=== PATIENT | male | born 1960 | race Caucasian/White ===

== ENCOUNTER → 2016-10-18 | Outpatient (CLI) | payer OTHER ==
--- NOTE | 2016-10-19 16:34 | REP ---
Whole body PET CT scan: There are no comparison PET scans. Comparison is made to CT of the chest abdomen pelvis dated 01/29/2015 ([facility]). Neck and supraclavicular areas: There is an hypermetabolic focus in the scalp postero lateral inferiorly on the right measuring approximately 1.4 cm in diameter with a standard uptake value of 7.6. There are no other hypermetabolic foci in the neck or supraclavicular areas. Chest: There are no hypermetabolic foci. Abdomen, pelvis and upper thighs: There is nonspecific bowel uptake. There is physiologic radio tracer excretion in the renal collecting systems. There are no hypermetabolic foci. Impression: There are no hypermetabolic foci. The study is performed with 10 mCi of F 18 FDG. Signed by Markus Sampson MD 10/19/2016 04:26 P
== END ==
LOC: M PLARAD 15:24
PROVIDERS: ATTEND Internal Medicine Medical Oncology
DX: C82.90 Follicular lymphoma, unspecified, unspecified site (principal)
CPT/HCPCS: 78815; A9552

== ENCOUNTER → 2016-10-20 | Outpatient (CLI) | payer OTHER ==
--- NOTE | 2016-10-20 14:50 | RADONC ---
RADIATION ONCOLOGY CONSULTATION NOTE DATE: 10/20/2016 CHART NUMBER: DIAGNOSIS: Follicular non-Hodgkin's lymphoma. STAGE: Recurrent. ECOG PERFORMANCE STATUS: 0 Mr. Mcclendon is a pleasant, 56-year-old white male with the diagnosis of recurrent cutaneous B-cell lymphoma, follicular center cell type, of his posterior occipital scalp, who is presenting to us today for consideration of definitive external beam radiation therapy with electrons as a therapeutic option. HISTORY OF PRESENT ILLNESS: The patient was in his usual state of health and was first diagnosed with follicular lymphoma back in 2003. He had a lymph node dissected at that time and has had no systemic therapy or radiation therapy. The patient did well until approximately a year ago, when there was a small bump on his occipital region of his scalp. His dentist recommended that this be checked out, and on 09/14/2016, the patient underwent excisional biopsy of his right posterior occipital lesion. Pathology revealed a cutaneous B-cell lymphoma favoring a follicular center cell type. The patient has no fevers, chills, night sweats, or weight loss. He is now presenting for consideration of electron beam therapy in an attempt to achieve local control. PAST MEDICAL HISTORY: The patient's past medical history is positive for hypertension, diabetes, and arthritis. He has had left knee surgery in the past. ALLERGIES: The patient has no known drug allergies. SOCIAL HISTORY: The patient does not smoke cigarettes. He drinks alcohol daily. FAMILY HISTORY: The patient's family history is positive for a grandfather with lung cancer and a grandmother with some type of cancer of unknown origin. REVIEW OF SYSTEMS: The patient's review of systems is positive for decreased energy, weight gain, physical limitations secondary to his weight, and arthritis. He denies nausea, vomiting, fevers, chills, night sweats, diplopia, headaches, anxiety or depression, anorexia, weight loss, visual disturbances, chest pain, urinary or bowel difficulties, or neurological problems. PHYSICAL EXAMINATION: The patient is a 307-1/2 pound white male in no acute distress. HEENT: Exam is positive for a circular, elevated lesion measuring approximately to 2.5 cm in circumference over the occipital portion of his scalp. There are no other lesions present. There is no palpable preauricular, cervical, supraclavicular, infraclavicular, or axillary lymphadenopathy present. His lungs are clear to auscultation and percussion. His heart has regular rate and rhythm. His abdomen is benign, but difficult to examine secondary to obesity. Skeletal examination reveals no tenderness to pressure or percussion of the bony skeleton. ASSESSMENT: Clearly, the patient is a candidate for electron beam therapy, and I have so informed him. I have discussed with the patient in detail the potential benefits well as possible acute and chronic sequelae of external beam radiation therapy. We discussed logistics of treatment planning, simulation, and subsequent fractionated daily radiation treatments. I have scheduled the patient for the next available treatment planning slot, and radiation will begin subsequently. cc: MD Dorothy Mejia MD Howard Meny, MD
== END ==
LOC: M ONCR 10:11
PROVIDERS: ATTEND Radiology Radiation Oncology
DX: C82.90 Follicular lymphoma, unspecified, unspecified site (principal)

== ENCOUNTER 2016-10-25 09:36 | Outpatient (RCR) | payer OTHER ==
--- NOTE | 2016-10-25 10:49 | RADONC ---
RADIATION ONCOLOGY SIMULATION NOTE DATE: 10/25/2016 CHART NUMBER: [id number] Mr. Mcclendon was taken to the linear accelerator today for clinical setup of his electron beam scalp field. Setup was accomplished without difficulty or discomfort. Radiation treatment planning is underway and radiation treatments will begin subsequently. An immobilization device was created without difficulty or discomfort. It will be used throughout the course of treatment. I was physically present throughout the course of simulation.
--- NOTE | 2016-11-08 06:20 | RADONC ---
RADIATION ONCOLOGY PROGRESS NOTE DATE: 11/07/2016 CHART NUMBER: [id number] Mr. Mcclendon is presently at a dose of 1200 cGy to his scalp and is tolerating treatments quite well at this point with no complaints related to his radiation therapy. He is having no skin discomfort or other problems. The patient does report that his lesion has shrunk in size significantly since initiation of therapy. REVIEW OF SYSTEMS: The patient's review of systems is noncontributory. Denies nausea, vomiting, fevers, chills, night sweats, diplopia, headaches, anxiety or depression, anorexia, weight loss, visual disturbances, chest pain, urinary or bowel difficulties, bone pain, or neurological problems. PHYSICAL EXAMINATION: The patient's skin is in excellent condition with no evidence of radiation change present. There is no moist or dry desquamation. The skin lesion has reduced in size significantly. The remainder of his physical exam remains unchanged. Mr. Mcclendon is tolerating treatments quite well and radiation will continue as scheduled.
== END 2016-11-10 ==
LOC: M ONCR 09:36
PROVIDERS: ATTEND Radiology Radiation Oncology
DX: C49.9 Malignant neoplasm of connective and soft tissue, unspecified (principal)

== ENCOUNTER 2016-11-11 11:43 | Outpatient (RCR) | payer OTHER ==
--- NOTE | 2016-11-16 08:50 | RADONC ---
RADIATION ONCOLOGY PROGRESS NOTE DATE: 11/15/2016 CHART NUMBER: [id number] Mr. Mcclendon is presently at a dose of 2200 cGy to his scalp and is tolerating treatments quite well at this point with no complaints related to his radiation therapy. He is having no skin pain or discomfort. The patient's review of systems is noncontributory. He denies nausea, vomiting, fevers, chills, night sweats, diplopia, headaches, anxiety or depression, anorexia, weight loss, visual disturbances, chest pain, urinary or bowel difficulties, bone pain, or neurological problems. PHYSICAL EXAMINATION: The patient's skin is in excellent condition with no evidence of moist or dry desquamation. His non-Hodgkin's lymphoma skin lesion is now flat, with an excellent result. The remainder of his physical exam remains unchanged. Mr. Mcclendon is tolerating treatments quite well and radiation will continue as scheduled.
--- NOTE | 2016-11-21 09:46 | RADONC ---
RADIATION ONCOLOGY TREATMENT SUMMARY DATE: 11/21/2016 CHART NUMBER: [id number] DIAGNOSIS: Follicular non-Hodgkin's lymphoma. STAGE: Recurrent. ECOG PERFORMANCE STATUS: 0 TREATMENT SUMMARY: Mr. Mcclendon is a very pleasant 56-year-old white male with the diagnosis of recurrent cutaneous B-cell lymphoma, follicular center cell type who presented to us for consideration of definitive radiation therapy to his scalp lesion. We treated the patient to his scalp for a dose of 3000 cGy delivered in 15 fractions of 200 cGy each over 21 elapsed days from 09/30/2016 through 11/21/2016. The patient's scalp was treated on the linear accelerator utilizing a 9 MeV electron beam via an en face technique prescribed to a depth of the 90th percentile isodose line. Mr. Mcclendon tolerated his treatments extremely well with no complaints related to his radiation therapy. He was able to complete therapy as prescribed without interruption. I have scheduled the patient to see me again in 1 month for further followup. He will also continue to be followed by his other physicians as well. cc: MD oDrothy Mejia MD Howard Meny, MD
== END 2016-12-10 ==
LOC: M ONCR 11:43
PROVIDERS: ATTEND Radiology Radiation Oncology
DX: C49.9 Malignant neoplasm of connective and soft tissue, unspecified (principal)

== ENCOUNTER → 2017-04-04 | Outpatient (REF) | payer OTHER ==
[2017-04-04 13:54] LABS: INR 1.57; PROTHROMBIN TIME 19.2 SECONDS (12.4-14.5)
[2017-04-04 13:55] LABS: PARTIAL THROMBOPLASTIN TIME 37.1 SECONDS (26.8-37.9)
== END ==
LOC: M LAB REF 13:01
DX: C82.90 Follicular lymphoma, unspecified, unspecified site (principal)

== ENCOUNTER → 2017-04-12 | Outpatient (CLI) | payer OTHER ==
[~2017-04-12] MED LIST: LIDOCAINE 1% MDV 20ML VIAL As Ordered
== END ==
LOC: M RADPRO 12:54
DX: C85.10 Unspecified B-cell lymphoma, unspecified site (principal); R59.9 Enlarged lymph nodes, unspecified; Z79.899 Other long term (current) drug therapy
CPT/HCPCS: 10022

== ENCOUNTER → 2017-04-26 | Outpatient (CLI) | payer OTHER | LOC: M PLARAD 10:27 | DX: C82.90 Follicular lymphoma, unspecified, unspecified site (principal) | CPT/HCPCS: 78815 ==

== ENCOUNTER → 2017-05-03 | Outpatient (CLI) | payer OTHER | LOC: M EKG 15:31 | DX: Z01.818 Encounter for other preprocedural examination (principal); I10 Essential (primary) hypertension; R94.31 Abnormal electrocardiogram [ECG] [EKG] | CPT/HCPCS: 93005 ==

== ENCOUNTER 2017-05-04 09:25 | Day surgery (SDC) | payer OTHER ==
[2017-05-04] MEDS: LR 1,000 ML IV ×2 (10:53→14:15)
[2017-05-04 10:58] LABS: BEDSIDE GLUCOSE 135 MG/DL (70-105)
[2017-05-04] MEDS ORDERED: PROPOFOL 200 MG/20 ML VIAL As Ordered (11:16)
[2017-05-04] MEDS ORDERED: LIDOCAINE 2% INJ 100 MG/5 ML SDV (FOR ANES.) As Ordered (11:16)
[2017-05-04] MEDS ORDERED: ONDANSETRON 4MG/2ML VIAL (J2405) As Ordered (11:16)
[2017-05-04] MEDS ORDERED: dexameTHASONE 4 MG/ML 1ML VIAL (J1100) As Ordered (11:16)
[2017-05-04] MEDS ORDERED: fentaNYL 250 MCG/5 ML INJECTION (J3010) As Ordered (11:17)
[2017-05-04] MEDS ORDERED: MIDAZOLAM INJ 2 MG/2 ML VIAL (J2250) As Ordered (11:18)
[2017-05-04] MEDS: BACITRACIN OINT 30GM As Ordered (12:30)
[2017-05-04] MEDS: LIDOCAINE W/EPINEPHRINE 1% 20ML VIAL As Ordered (12:53)
[2017-05-04] MEDS ORDERED: ROCURONIUM BROMIDE 50 MG/5 ML VIAL As Ordered (12:56)
[2017-05-04] MEDS ORDERED: SUGAMMADEX SODIUM 500 MG/5 ML VIAL (BRIDION) As Ordered (12:56)
[2017-05-04] MEDS ORDERED: SUCCINYLCHOLINE 100 MG/5 ML SYRINGE (J0330) As Ordered (12:57)
[2017-05-04] MEDS ORDERED: PHENYLephrine HCL 500 MCG/5 ML (100MCG/ML) SYRINGE (J2370) As Ordered (12:57)
[2017-05-04] MEDS ORDERED: ePHEDrine INJ 50 MG/ML VIAL As Ordered (13:15)
[2017-05-04] MEDS ORDERED: NEOSTIGMINE 10 MG/10 ML VIAL (J2710) As Ordered (13:27)
[2017-05-04] MEDS ORDERED: GLYCOPYRROLATE INJ 0.2 MG/ML 2 ML VIAL As Ordered (13:27)
[2017-05-04] MEDS ORDERED: KETOROLAC 60 MG/2 ML VIAL (J1885) As Ordered (13:42)
[2017-05-04] MEDS ORDERED: LR 1,000 ML IV (14:00)
[2017-05-04] MEDS ORDERED: PERCOCET 5MG/325MG TAB As Ordered (14:09)
[2017-05-04] MEDS: PERCOCET 5MG/325MG TAB PO (14:09)
[2017-05-04] MEDS ORDERED: ONDANSETRON 4MG/2ML VIAL (J2405) IV (14:15)
== END 2017-05-04 15:45 | disposition home or self-care (01) ==
LOC: M SDC 09:25
DX: R59.0 Localized enlarged lymph nodes (principal); E11.9 Type 2 diabetes mellitus without complications; I10 Essential (primary) hypertension; E78.00 Pure hypercholesterolemia, unspecified; R06.02 Shortness of breath; M17.0 Bilateral primary osteoarthritis of knee; M54.9 Dorsalgia, unspecified; Z79.899 Other long term (current) drug therapy; Z79.84 Long term (current) use of oral hypoglycemic drugs; Z85.038 Personal history of other malignant neoplasm of large intestine; Z92.3 Personal history of irradiation
CPT/HCPCS: 38510

== ENCOUNTER 2017-05-17 15:19 | Outpatient (CLI) | payer OTHER ==
[2017-05-17] MEDS: ACETAMINOPHEN TAB 650MG DOSE (2X325MG) PO (16:10)
[2017-05-17] MEDS: diphenhydrAMINE 50 MG CAP PO (16:10)
[2017-05-17 16:51] LABS: IMMEDIATE SPIN CROSSMATCH 1 2
[2017-05-19 12:15] LABS: BEDSIDE GLUCOSE 117 MG/DL (70-105)
== END 2017-05-17 23:33 | disposition home or self-care (01) ==
LOC: M OPCLI5PR 23:33 → M MS5PR 15:22
DX: C82.90 Follicular lymphoma, unspecified, unspecified site (principal); Z79.899 Other long term (current) drug therapy
CPT/HCPCS: 36430

== ENCOUNTER → 2017-05-17 | Outpatient (REF) | payer OTHER ==
[2017-05-17 19:03] LABS: FERRITIN 17 NG/ML (26-388); IRON (FE) 21 UG/DL (65-175); PERCENT SATURATION 5.1 % (19.7-50.0); TOTAL IRON BINDING CAPACITY 408 UG/DL (250-450)
[2017-05-17 19:03] LABS: BILIRUBIN,DIRECT 0.9 MG/DL (0.0-0.2)
[2017-05-20 00:06] LABS: BETA 2 MICROGLOBULIN 2.3 mg/L (0.6-2.4)
[2017-05-20 00:06] LABS: SOLUBLE TRANSFERRIN RECEPTOR 57.1 nmol/L (12.2-27.3)
== END ==
LOC: M LAB REF 17:28
DX: C82.90 Follicular lymphoma, unspecified, unspecified site (principal)
CPT/HCPCS: 83550

== ENCOUNTER → 2017-06-28 | Outpatient (REF) | payer OTHER ==
[2017-06-28 13:57] LABS: FERRITIN 237 NG/ML (26-388); IRON (FE) 66 UG/DL (65-175); PERCENT SATURATION 26.1 % (19.7-50.0); TOTAL IRON BINDING CAPACITY 253 UG/DL (250-450)
== END ==
LOC: M LAB REF 13:06
DX: D50.9 Iron deficiency anemia, unspecified (principal)

== ENCOUNTER 2017-06-30 10:03 | Day surgery (SDC) | payer OTHER ==
[2017-06-30] MEDS: NS 1,000 ML IV ×2 (10:15)
[2017-06-30] MEDS ORDERED: PROPOFOL 200 MG/20 ML VIAL As Ordered ×10 (11:13→11:48)
== END 2017-06-30 12:28 | disposition home or self-care (01) ==
LOC: M OPP 10:03
DX: D50.9 Iron deficiency anemia, unspecified (principal); Z85.038 Personal history of other malignant neoplasm of large intestine; D12.7 Benign neoplasm of rectosigmoid junction; K64.8 Other hemorrhoids; I86.4 Gastric varices; K74.60 Unspecified cirrhosis of liver; K76.6 Portal hypertension; K31.89 Other diseases of stomach and duodenum; C82.90 Follicular lymphoma, unspecified, unspecified site; Z92.3 Personal history of irradiation; I10 Essential (primary) hypertension; E78.5 Hyperlipidemia, unspecified; E11.9 Type 2 diabetes mellitus without complications; M19.90 Unspecified osteoarthritis, unspecified site; D64.9 Anemia, unspecified; M54.9 Dorsalgia, unspecified; R06.83 Snoring; Z79.84 Long term (current) use of oral hypoglycemic drugs; Z79.899 Other long term (current) drug therapy
CPT/HCPCS: 45380

== ENCOUNTER → 2017-06-30 | Outpatient (CLI) | payer OTHER ==
[2017-06-30 10:19] LABS: BASO # 0.1 10^3/uL (0.0-0.2); BASO % 1.4 % (0.0-1.0); EOS # 0.1 10^3/uL (0.0-0.50); EOS % 0.9 % (0.0-3.0); HEMATOCRIT 36.3 % (42.0-52.0); HEMOGLOBIN 11.9 g/dl (13.5-17.5); IMMATURE GRANULOCYTE % 0.2 % (0-3.0); LYMPH # 0.8 10^3/uL (1.5-4.5); LYMPH % 11.7 % (24.0-44.0); MEAN CORPUSCULAR HEMOGLOBIN 28.7 pg (27.0-33.0); MEAN CORPUSCULAR HGB CONC 32.8 g/dl (32.0-36.5); MEAN CORPUSCULAR VOLUME 87.5 fl (80.0-96.0); MONO # 0.8 10^3/uL (0.0-0.8); MONO % 11.4 % (0.0-5.0); NEUTROPHILS % 74.4 % (36.0-66.0); PLATELET COUNT, AUTOMATED 131 10^3/uL (150-450); RED BLOOD COUNT 4.15 10^6/uL (4.30-6.10); RETIC HEMOGLOBIN EQUIVALENT 38.4 pg (24-36); RETICULOCYTE # 66.4 10^9/L (17-77); RETICULOCYTE % 1.6 % (0.5-1.5); WHITE BLOOD COUNT 6.7 10^3/uL (4.0-10.0)
[2017-06-30 10:20] LABS: ADD MORPHOLOGY? YES; POSITIVE MORPH POS FLAG
[2017-06-30 10:24] LABS: REASON FOR REVIEW ANEMIA / RBC MORPH; SLIDE REVIEW Report; SOURCE PERIPHERAL SMEAR
[2017-06-30 10:36] LABS: ANISOCYTOSIS 2+
[2017-06-30 10:37] LABS: POIKILOCYTOSIS 1+; TARGET CELLS 1+
[2017-06-30 10:38] LABS: HYPOCHROMASIA 1+; PLATELET ESTIMATE NORMAL (NORMAL)
[2017-06-30 10:43] LABS: ALBUMIN 3.2 GM/DL (3.2-5.2); ALBUMIN/GLOBULIN RATIO 0.78 (1.00-1.93); ALKALINE PHOSPHATASE 140 U/L (45-117); ALT/SGPT 32 U/L (12-78); AST/SGOT 95 U/L (7-37); BILIRUBIN,DIRECT 2.6 MG/DL (0.0-0.2); BILIRUBIN,TOTAL 4.4 MG/DL (0.2-1.0); LDH LACTATE DEHYDROGENASE 249 U/L (87-241); TOTAL PROTEIN 7.3 GM/DL (6.4-8.2)
[2017-06-30 10:50] LABS: FOLATE 15.2 NG/ML (>5.4); VITAMIN B12 LEVEL 1481 PG/ML (247-911)
[2017-07-02 00:06] LABS: TISSUE TRANSGLUTAMINASE IgA 3 U/mL (0-3)
[2017-07-02 00:06] LABS: HAPTOGLOBIN 104 mg/dL (34-200)
[2017-07-04 08:06] LABS: IgA SERUM (part of Subclasses) 1071 mg/dL (90-386)
== END ==
LOC: M LAB 09:24
DX: D50.9 Iron deficiency anemia, unspecified (principal)
CPT/HCPCS: 82746

== ENCOUNTER → 2017-08-04 | Outpatient (CLI) | payer OTHER | LOC: M RAD 09:20 | DX: D50.9 Iron deficiency anemia, unspecified (principal) | CPT/HCPCS: 76700 ==

== ENCOUNTER → 2017-10-05 | Outpatient (REF) | payer MEDICAID, OTHER ==
[2017-10-05 11:12] LABS: AMMONIA 50 uMOL/L (<32)
[2017-10-05 12:17] LABS: ESTIMATED AVERAGE GLUCOSE 100 MG/DL (60-110); HEMOGLOBIN A1c 5.1 %
== END ==
LOC: M LAB REF 10:42
DX: F10.929 Alcohol use, unspecified with intoxication, unspecified (principal)
CPT/HCPCS: 82140

== ENCOUNTER → 2017-10-31 | Outpatient (CLI) | payer OTHER | LOC: M PLARAD 12:24 | DX: C82.11 Follicular lymphoma grade II, lymph nodes of head, face, and neck (principal) | CPT/HCPCS: 78815 ==

== ENCOUNTER → 2018-02-07 | Outpatient (REF) | payer OTHER ==
[2018-02-07 11:08] LABS: INR 1.47; PROTHROMBIN TIME 18.1 SECONDS (12.1-14.4)
[2018-02-07 11:09] LABS: PARTIAL THROMBOPLASTIN TIME 36.3 SECONDS (25.4-37.6)
[2018-02-07 11:21] LABS: BILIRUBIN,DIRECT 0.9 MG/DL (0.0-0.2)
[2018-02-07 11:33] LABS: HEPATITIS B SURFACE ANTIBODY NEGATIVE (POSITIVE)
[2018-02-07 12:13] LABS: HEPATITIS C VIRUS ABY INDEX 0.1 INDEX (<0.8)
[2018-02-07 14:01] LABS: HEPATITIS B SURFACE ANTIGEN NEGATIVE (NEGATIVE)
[2018-02-09 00:06] LABS: ANTI-MITOCHONDRIAL ANTIBODY 1.9 Units (0.0-20.0); ANTINUCLEAR ANTIBODIES DIRECT Negative (Negative); HEPATITIS A IgG TOTAL Negative (Negative); HEPATITIS B CORE ANTIBODY IGG Negative (Negative)
[2018-02-09 00:06] LABS: ANTI-SMOOTH MUSCLE ANTIBODY 27 Units (0-19)
[2018-02-09 09:59] LABS: ALPHA FETOPROTEIN TUMOR QUANT 5.7 NG/ML (<8.1)
== END ==
LOC: M LAB REF 10:14
DX: D50.9 Iron deficiency anemia, unspecified (principal); K70.30 Alcoholic cirrhosis of liver without ascites

== ENCOUNTER → 2018-05-15 | Outpatient (REF) | payer OTHER ==
[~2018-05-15] MED LIST changes: +FOLI1TAB11 PO; +GEMF600T5 PO; +HYDR-3363 PO; +HYDR12.55 PO; +IRON65TA PO; -LIDOCAINE 1% MDV 20ML VIAL As Ordered; +LISI10TA4 PO; +MELO7.5T7 PO; +METF10004; +MULTTAB23 PO; +PANT40TA3 PO; +SPIR-10 PO; +[UNRECOGNIZED DRUG - OTHER] PO
[2018-05-15 12:53] LABS: BASO % 0.6 % (0.0-1.0); EOS # 0.1 10^3/uL (0.0-0.50); HEMATOCRIT 30.6 % (42.0-52.0); HEMOGLOBIN 10.4 g/dl (13.5-17.5); LYMPH # 0.6 10^3/uL (1.5-4.5); LYMPH % 12.6 % (24.0-44.0); MEAN CORPUSCULAR HEMOGLOBIN 31.5 pg (27.0-33.0); MEAN CORPUSCULAR VOLUME 92.7 fl (80.0-96.0); MONO # 0.6 10^3/uL (0.0-0.8); MONO % 11.7 % (0.0-5.0); NEUTROPHILS # 3.4 10^3/uL (1.8-7.7); NEUTROPHILS % 71.7 % (36.0-66.0); PLATELET COUNT, AUTOMATED 95 10^3/uL (150-450); WHITE BLOOD COUNT 4.7 10^3/uL (4.0-10.0)
[2018-05-15 13:01] LABS: ALBUMIN 3.3 GM/DL (3.2-5.2); ALT/SGPT 22 U/L (12-78); BILIRUBIN,TOTAL 2.7 MG/DL (0.2-1.0); BLOOD UREA NITROGEN 22 MG/DL (7-18); CALCIUM LEVEL 8.1 MG/DL (8.5-10.1); CARBON DIOXIDE LEVEL 26 MEQ/L (21-32); CHLORIDE LEVEL 106 MEQ/L (98-107); CHOLESTEROL LEVEL 197 MG/DL (<200); CHOLESTEROL RISK RATIO 2.493 (<5); GLOMERULAR FILTRATION RATE > 60.0 (>56); GLUCOSE, FASTING 161 MG/DL (70-100); HDL CHOLESTEROL 79 MG/DL (>40); LDL CHOLESTEROL 106 MG/DL (<100); NON-HDL-C 118 MG/DL; SODIUM LEVEL 139 MEQ/L (136-145); TRIGLYCERIDES LEVEL 61 MG/DL (<150)
[2018-05-15 14:23] LABS: HEMOGLOBIN A1c 6.4 %
== END ==
LOC: M SFHCPLAZ 09:32
DX: E78.5 Hyperlipidemia, unspecified (principal); E11.9 Type 2 diabetes mellitus without complications; K70.31 Alcoholic cirrhosis of liver with ascites; D63.8 Anemia in other chronic diseases classified elsewhere

== ENCOUNTER → 2018-05-25 | Outpatient (CLI) | payer OTHER ==
--- NOTE | 2018-05-27 08:02 | ECHO ---
DATE OF PROCEDURE: 05/25/2018 HEIGHT: 70 inches WEIGHT: 270 pounds BODY SURFACE AREA: 2.37 sq m REFERRING PHYSICIAN: Dr. Gabriela Joshi INDICATION: Murmur. MEASUREMENTS: 2D Measurements: RV - 4.4 cm LV - 6.0 cm Septum -1.2 cm Posterior wall - 1.2 cm Aortic root - 3.8 cm LA - 4.5 cm LVEF 65 - 75% Doppler Measurements: AV - 1.7 meters per second LVOT - 1.5 meters per second LVOT diameter - 2.2 cm MV- E 78, A -67, E/A ratio 1.2 Early mitral deceleration time - 320 milliseconds E prime 8.4, A prime 8.8, E/E prime ratio 9.3 PV - 1.1 meters per second Pulmonary artery acceleration time 116 milliseconds PASP 33 mmHg IVC - 1.6 cm COMMENTS: Normal sinus rhythm without intraventricular conduction disturbance. Technically difficult study in light of the patient's body habitus but diagnostically useful information was still obtained. M-mode and two-dimensional echocardiography was obtained with pulsed, continuous wave, color flow and tissue Doppler studies. Mildly dilated and borderline hypertrophied left ventricle with hyperkinetic wall motion. At least mildly dilated left atrium with normal Doppler assessment of LV diastolic function and estimated mean left atrial pressure. Mildly dilated right heart chambers with normal wall motion and Doppler sign of borderline pulmonary hypertension. Normal IVC size against an elevated central venous pressure. Slight degenerative changes of the mitral and aortic valvular apparatus without functional valvular abnormality. Borderline dilated aortic root. No apparent intracardiac mass. His murmur is likely related to degenerative change of his aortic valve and mildly dilated aortic root. MTDD
== END ==
LOC: M CARPUL 09:02
PROVIDERS: ATTEND Internal Medicine
DX: R01.1 Cardiac murmur, unspecified (principal)

== ENCOUNTER → 2018-07-09 | Outpatient (CLI) | payer OTHER ==
[~2018-07-09] MED LIST changes: +FOLI0.4T PO; -[UNRECOGNIZED DRUG - OTHER] PO
--- NOTE | 2018-07-09 07:02 | REP ---
Clinical: History of cirrhosis with ascites. Technique: Veras scale ultrasound using curved array transducer. Findings: The liver demonstrates coarsened echotexture with subtle nodular contour consistent with the given history of cirrhosis. No focal hepatic lesion identified by ultrasound. The pancreas is incompletely evaluated due to interposed bowel gas but visualized portions appear grossly normal. The gallbladder is hydropic/distended, but without gallstones, wall thickening or pericholecystic fluid. No biliary ductal dilatation is appreciated, and the common bile duct measures 5.6 mm diameter. The right kidney is normal in reniform shape without hydronephrosis and measures 12.3 x 5.6 x 6.6 cm. No ascites. Visualized portions of the abdominal aorta normal. No ascites appreciated. Impression: 1. Cirrhotic appearance to the liver without focal hepatic lesion identified. 2. No ascites identified. Electronically Signed by Sha Martinez MD 07/09/2018 06:54 A
== END ==
LOC: M RAD 06:18
PROVIDERS: ATTEND Internal Medicine Gastroenterology
DX: K70.31 Alcoholic cirrhosis of liver with ascites (principal)

== ENCOUNTER → 2018-10-31 | Outpatient (REF) | payer OTHER ==
[~2018-10-31] MED LIST changes: +METO1TAB32 PO
--- NOTE | 2018-11-04 10:51 | MEDONC ---
MEDICAL ONCOLOGY NOTE DATE OF SERVICE: 11/02/2018 This is a very pleasant 57-year-old gentleman with a known history of follicular non-Hodgkin's lymphoma. currently on observation alone . Treatment history: 1.The patient had originally been diagnosed with a follicular non-Hodgkin's in 2003 with a retroperitoneal lymph node biopsy. He had been observed without any treatment until 2016 where he had developed progressive scalp lesions and biopsies at that time had shown a double hit by FISH. He had received radiation therapy to the scalp in 2017. 2.He then presented with a palpable right posterior cervical lymph node in 05/04/2017 and a biopsy of the cervical LN was done . PET scan had demonstrated a hypermetabolic area in the corresponding area. There was no other sign of the lymphoma elsewhere. 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 3.The patient then underwent bendamustine therapy in 07/13/2017-08/25/2017 and he completed 3 cycles .This was interrupted as he was readmitted to an alcohol rehab facility and he had developed hepatic encephalopathy and cirrhosis at that time. Currently he is on recovery from alcohol abuse. He has been on observation since. FAMILY HISTORY: His father had COPD, anxiety. Mother had partial lung removed, diagnosed with hypertension one brother. SOCIAL HISTORY: He is a nonsmoker but history of alcohol abuse, currently on recovery. ALLERGIES: He has NO KNOWN DRUG ALLERGIES. SURGICAL HISTORY: Positive for laparoscopic surgery in 2003. PAST MEDICAL HISTORY: Diabetes. Hypertension. Hyperlipidemia. Three surgeries to his knees. MEDICATIONS INCLUDE: - folic acid 1 mg p.o. daily - metoprolol succinate 25 mg p.o. daily - MVI one tablet p.o. daily REVIEW OF SYSTEMS: 1. CONSTITUTIONAL: No weight loss, fever chills or night sweats. Tiredness, fatigue, occasional weakness. 2. EYES: No blurring of vision, no visual loss partial or complete, no tearing, redness. 3. EAR, NOSE, THROAT and MOUTH: No hearing loss, sinusitis, sore throat, dental problems, tooth pain. Denies dysphagia, mouth sores, bleeding. 4. RESPIRATORY: Denies asthma, wheezing, cough, sputum production. 5. GI: No nausea, vomiting, diarrhea or constipation, change in color or caliber of stool. No hemorrhoids. No rectal bleeding. No hematemesis, heartburn. 6. : No hematuria, dysuria, frequency, stones. 7. CV: No chest pain, palpitations, murmur, fainting, lightheadedness or chest pressure. 8. ENDOCRINE: No cold or heat intolerance, diabetes, polyuria, polydipsia. 9. MUSCULOSKELETAL: No new joint stiffness, joint swelling, myalgias, gout. 10. ALLERGY/IMMUNOLOGY: No new allergies to food, medications. 11. HEMATOLOGICAL: Denies bruising, bleeding, lymph node enlargement. 12. PSYCHIATRIC: Denies depression, agitation, memory loss, panic attacks. 13. SKIN: Denies rashes, moles, dryness, pigment changes. 14. NEUROLOGIC: Denies dizziness, syncope, seizures, vertigo, weakness, tremor. PHYSICAL EXAMINATION: ECOG is 1/4, his BSA is 2.56, BMI is 40. Vital signs: The patient has a temperature of 97.8, pulse is 64, respiratory rate is 18, BP is 150/74, pulse oximetry is 98. HEENT is normocephalic, atraumatic. PERRL. EOMI. Sclerae is white, nonicteric. Oropharynx is otherwise clear. Neck is supple with no adenopathy. Chest: Decreased breath sounds at the bases. Cardiovascular: S1 and S2 are appreciated with no murmurs. Abdomen is otherwise soft, nontender. Large globoid areas of fat. Liver edge could not be palpated due to the large globoid abdomen. Extremities had about +1 lower pitting edema. Laboratories today show a WBC count of 5.8, hemoglobin of 11 over 32.5, platelet counts of 110, neutrophils are 67, lymphocytes are 15. Serum chemistries show a sodium of 137, potassium 4.2, chloride of 106, CO2 26, BUN of 13, creatinine of 1.01, calcium of 8.2, serum iron of 182, TIBC 306, iron transferrin saturation 59%, AST of 30, ALT of 20, alkaline phosphatase of 210, LDH is 213, total protein 6.1. ASSESSMENT AT THIS TIME: 1. Follicular low grade non-Hodgkin's lymphoma currently with no signs of any disease remission. 2. History of alcohol abuse currently on recovery. PLAN: Have the patient follow up in 6 months with CBC, CMP, LDH as well as physical examination and body survey checking the patient's skin as well. Electronically Signed by Cindy Byrne MD 11/05/2018 08:25 A DD: Cindy Byrne MD 11/01/2018 07:59 A DT: patricia 11/04/2018 08:10 A CC: Scotty Harmon MD
== END ==
LOC: M LAB REF 15:58
PROVIDERS: ATTEND Internal Medicine Gastroenterology
DX: K70.31 Alcoholic cirrhosis of liver with ascites (principal)

== ENCOUNTER → 2018-12-11 | Outpatient (CLI) | payer OTHER ==
--- NOTE | 2018-12-11 09:27 | REP ---
RIGHT UPPER QUADRANT ULTRASOUND: Real-time sonographic evaluation of the right upper quadrant performed. Gallbladder demonstrates no evidence of intraluminal sludge or calculi. There is mild gallbladder wall thickening at 5 mm. There is no free fluid. Distally the common bile duct is mildly dilated at 9 mm. There is no intrahepatic biliary dilatation. Liver is heterogeneous in echotexture with no gross mass. Pancreas could not be visualized due to overlying bowel gas. Right kidney demonstrates no hydronephrosis with normal size 13 cm in length. IMPRESSION: No gallstones. Mild gallbladder wall thickening up to 5 mm. No free fluid. Mild dilatation distal common bile duct 9 mm. Heterogeneous echotexture of the liver with no gross mass. Electronically Signed by Markus Veras MD 12/12/2018 04:03 P
== END ==
LOC: M RAD 06:25
PROVIDERS: ATTEND Internal Medicine Gastroenterology
DX: K70.31 Alcoholic cirrhosis of liver with ascites (principal)

== ENCOUNTER → 2019-01-04 | Outpatient (CLI) | payer OTHER ==
[2019-01-04 16:38] LABS: BASO # 0.1 10^3/uL (0.0-0.2); EOS # 0.3 10^3/uL (0.0-0.5); EOS % 4.8 % (0.0-3.0); HEMATOCRIT 32.2 % (42.0-52.0); HEMOGLOBIN 11.1 g/dl (13.5-17.5); LYMPH # 1.1 10^3/uL (1.5-5.0); LYMPH % 19.1 % (24.0-44.0); MEAN CORPUSCULAR HEMOGLOBIN 31.6 pg (27.0-33.0); MEAN CORPUSCULAR HGB CONC 34.5 g/dl (32.0-36.5); MEAN CORPUSCULAR VOLUME 91.7 fl (80.0-96.0); MONO # 0.6 10^3/uL (0.0-0.8); NEUTROPHILS # 3.7 10^3/uL (1.5-8.5); NEUTROPHILS % 63.6 % (36.0-66.0); PLATELET COUNT, AUTOMATED 103 10^3/uL (150-450); RED BLOOD COUNT 3.51 10^6/uL (4.30-6.10); WHITE BLOOD COUNT 5.8 10^3/uL (4.0-10.0)
[2019-01-04 16:55] LABS: INR 1.47; PROTHROMBIN TIME 17.6 SECONDS (11.8-14.0)
[2019-01-04 16:56] LABS: PARTIAL THROMBOPLASTIN TIME 34.1 SECONDS (25.0-38.4)
[2019-01-04 16:58] LABS: ALBUMIN 3.2 GM/DL (3.2-5.2); BILIRUBIN,DIRECT 0.8 MG/DL (0.0-0.2); BILIRUBIN,TOTAL 2.3 MG/DL (0.2-1.0); PERCENT SATURATION 22.8 % (19.7-50.0); TOTAL PROTEIN 6.4 GM/DL (6.4-8.2)
[2019-01-04 17:14] LABS: FOLATE 17.4 NG/ML
== END ==
LOC: M LAB 16:00
PROVIDERS: ATTEND Internal Medicine Gastroenterology
DX: K70.30 Alcoholic cirrhosis of liver without ascites (principal); D64.9 Anemia, unspecified

== ENCOUNTER → 2019-03-07 | Outpatient (CLI) | payer OTHER ==
--- NOTE | 2019-03-07 14:58 | REP ---
Clinical: Upper respiratory tract infection . Comparison: None . Technique: PA and lateral. Findings: The mediastinum and cardiac silhouette are normal. The lung ramos are clear and without acute consolidation, effusion, or pneumothorax. The skeletal structures are intact and normal. Impression: 1. No acute cardiopulmonary process. Electronically Signed by Sha Martinez MD 03/07/2019 02:51 P
== END ==
LOC: M RAD 14:17
PROVIDERS: ATTEND Student in an Organized Health Care Education/Training Program
DX: J06.9 Acute upper respiratory infection, unspecified (principal)

== ENCOUNTER → 2019-05-29 | Outpatient (REF) | payer OTHER ==
[~2019-05-29] MED LIST changes: +ADLY20IN PO; +DAILTAB51 PO; +FURO20TA2 PO; +LACT10SO3 PO; +PROP60CA PO; +STEG5TAB PO
== END ==
LOC: M LAB REF 14:45
PROVIDERS: ATTEND Dermatology
DX: B07.9 Viral wart, unspecified (principal)

== ENCOUNTER → 2019-06-21 | Outpatient (REF) | payer OTHER ==
[2019-06-22 08:06] LABS: ERYTHROPOIETIN 21.9 mIU/mL (2.6-18.5)
== END ==
LOC: M LAB REF 11:36
PROVIDERS: ATTEND Internal Medicine Gastroenterology
DX: K70.31 Alcoholic cirrhosis of liver with ascites (principal)

== ENCOUNTER → 2019-06-26 | Outpatient (CLI) | payer OTHER ==
--- NOTE | 2019-06-26 07:35 | REP ---
Clinical: Cirrhosis Technique: Veras scale ultrasound using curved array transducer. Findings: The liver is coarsened in echotexture and consistent with cirrhosis. No focal hepatic lesion identified. Visualized portions of the pancreas are normal. The gallbladder is normal without gallstones, wall thickening or pericholecystic fluid. No biliary ductal dilatation is appreciated, and the common bile duct measures 7.3 mm diameter. The right kidney is normal in reniform shape without hydronephrosis and measures 12.0 x 6.1 x 6.0 cm. No ascites. Visualized portions of the abdominal aorta normal. Impression: Cirrhosis without focal hepatic abnormality. No ascites. Electronically Signed by Sha Martinez MD 06/26/2019 07:27 A
== END ==
LOC: M RAD 06:28
PROVIDERS: ATTEND Internal Medicine Gastroenterology
DX: K70.31 Alcoholic cirrhosis of liver with ascites (principal)

== ENCOUNTER → 2019-08-29 | Outpatient (REF) | payer OTHER ==
[~2019-08-29] MED LIST changes: +TIZA2TA PO; +VITA100T89 PO
[2019-08-29 17:34] LABS: C REACTIVE PROTEIN QUANTITATIV < 0.30 MG/DL (0.00-0.30); RHEUMATOID FACTOR QUANT < 10.0 IU/ML (<15.0)
[2019-08-29 18:58] LABS: APPEARANCE, URINE HAZY (CLEAR); BACTERIA, URINE AUTO 1+ (NEGATIVE); BILIRUBIN, URINE AUTO NEGATIVE (NEGATIVE); BLOOD, URINE BLOOD NEGATIVE (NEGATIVE); CALCIUM OXALATE CRYSTALS SMALL; COLOR, URINE YELLOW (YELLOW); GLUCOSE, URINE (UA) AUTO 3+ mg/dL (NEGATIVE); KETONE, URINE AUTO NEGATIVE (NEGATIVE); LEUKOCYTE ESTERASE, URINE AUTO NEGATIVE (NEGATIVE); MUCUS, URINE SMALL (NEGATIVE); NITRITE, URINE AUTO NEGATIVE (NEGATIVE); PROTEIN, URINE AUTO NEGATIVE (NEGATIVE); RBC, URINE AUTO 1 /HPF (0-3); SPECIFIC GRAVITY URINE AUTO 1.014 (1.002-1.035); SQUAMOUS EPITHELIAL CELL UR AU 0 /HPF (0-6); WBC, URINE AUTO 8 /HPF (0-3)
[2019-09-02 23:12] LABS: ANTINUCLEAR ANTIBODIES DIRECT Negative (Negative); CYCLIC CITRULLINATED PEPTIDE 6 units (0-19)
== END ==
LOC: M SFHCPLAZ 13:51
DX: R36.1 Hematospermia (principal); M25.541 Pain in joints of right hand

== ENCOUNTER → 2019-09-02 | Outpatient (CLI) | payer OTHER ==
[2019-09-02 15:38] LABS: BASO # 0.1 10^3/uL (0.0-0.2); EOS # 0.2 10^3/uL (0.0-0.5); EOS % 3.4 % (0.0-3.0); HEMATOCRIT 43.2 % (42.0-52.0); HEMOGLOBIN 14.6 g/dl (13.5-17.5); LYMPH # 1.4 10^3/uL (1.5-5.0); LYMPH % 20.8 % (24.0-44.0); MEAN CORPUSCULAR HEMOGLOBIN 33.3 pg (27.0-33.0); MEAN CORPUSCULAR HGB CONC 33.8 g/dl (32.0-36.5); MEAN CORPUSCULAR VOLUME 98.4 fl (80.0-96.0); MONO # 0.5 10^3/uL (0.0-0.8); NEUTROPHILS # 4.6 10^3/uL (1.5-8.5); NEUTROPHILS % 67.4 % (36.0-66.0); PLATELET COUNT, AUTOMATED 131 10^3/uL (150-450); RED BLOOD COUNT 4.39 10^6/uL (4.30-6.10); WHITE BLOOD COUNT 6.8 10^3/uL (4.0-10.0)
[2019-09-02 16:11] LABS: PERCENT SATURATION 88.2 % (19.7-50.0)
== END ==
LOC: M LAB 14:44
PROVIDERS: ATTEND Internal Medicine Hematology & Oncology
DX: D50.9 Iron deficiency anemia, unspecified (principal)

== ENCOUNTER → 2019-11-01 | Outpatient (CLI) | payer OTHER ==
[~2019-11-01] MED LIST changes: +PANT40TA29 PO; -PANT40TA3 PO; +TIZA4TAB4 PO
[2019-11-01 15:33] LABS: HEMOGLOBIN A1c 6.4 %
== END ==
LOC: M LAB 14:02
PROVIDERS: ATTEND Family Medicine
DX: E11.9 Type 2 diabetes mellitus without complications (principal)

== ENCOUNTER → 2019-12-30 | Outpatient (CLI) | payer OTHER ==
--- NOTE | 2019-12-30 07:57 | REP ---
INDICATION: HLL, CIRRHOSIS COMPARISON: 06/26/2019, 07/09/2018 TECHNIQUE: Real time higgins scale ultrasound examination using curved array transducer. FINDINGS: Liver demonstrates coarsened echotexture consistent with given history of cirrhosis. No focal hepatic lesions are identified. The pancreas is incompletely evaluated but visualized portions appear normal. Gallbladder demonstrates small amount of layering sludge/gravel without wall thickening or pericholecystic fluid. No biliary ductal dilatation is appreciated and the common bile duct measures 6 mm diameter. Right kidney is normal in reniform shape without hydronephrosis and measures 11.1 x 6.1 x 5.9 cm. No ascites in the visualized right upper quadrant. IMPRESSION: 1. Coarsened echotexture consistent with cirrhosis. No focal hepatic lesion identified. 2. Cholelithiasis. <Electronically signed by Sha Martinez > 12/30/19 [id number]
== END ==
LOC: M RAD 06:30
PROVIDERS: ATTEND Internal Medicine Hematology & Oncology
DX: K74.60 Unspecified cirrhosis of liver (principal); D50.9 Iron deficiency anemia, unspecified

== ENCOUNTER → 2021-01-20 | Outpatient (CLI) | payer OTHER ==
[~2021-01-20] MED LIST changes: +AMOX500C PO; -FOLI0.4T PO; +FOLI0.4T5 PO; +IBUP-1022 PO; +LISI10TA22 PO; -LISI10TA4 PO
[2021-01-20 11:48] LABS: HEMOGLOBIN A1c 7.1 %
[2021-01-22 16:09] LABS: AFP TUMOR TOTAL 2.4 ng/mL (0.0-8.0)
== END ==
LOC: M PLALAB 09:21
PROVIDERS: ATTEND Student in an Organized Health Care Education/Training Program
DX: E11.9 Type 2 diabetes mellitus without complications (principal); K70.30 Alcoholic cirrhosis of liver without ascites

== ENCOUNTER → 2021-05-05 | Outpatient (CLI) | payer OTHER ==
[~2021-05-05] MED LIST changes: +TIZA10TA PO; -TIZA4TAB4 PO
== END ==
LOC: M RAD 09:48
PROVIDERS: ATTEND Orthopaedic Surgery
DX: M25.551 Pain in right hip (principal)

== ENCOUNTER → 2021-06-16 | Outpatient (CLI) | payer OTHER | LOC: M WHC 06:45 | PROVIDERS: ATTEND Internal Medicine Gastroenterology | DX: K63.5 Polyp of colon (principal); K80.20 Calculus of gallbladder without cholecystitis without obstruction; K74.60 Unspecified cirrhosis of liver; R14.0 Abdominal distension (gaseous) ==

== ENCOUNTER → 2021-06-16 | Outpatient (CLI) | payer OTHER ==
[2021-06-16 11:16] LABS: BASO # 0.1 10^3/uL (0.0-0.2); BASO % 1.8 % (0.0-1.0); EOS # 0.1 10^3/uL (0.0-0.5); EOS % 2.6 % (0.0-3.0); LYMPH # 0.8 10^3/uL (1.5-5.0); LYMPH % 20.9 % (24.0-44.0); MEAN CORPUSCULAR HEMOGLOBIN 32.3 pg (27.0-33.0); MEAN CORPUSCULAR HGB CONC 33.3 g/dl (32.0-36.5); MEAN CORPUSCULAR VOLUME 96.8 fl (80.0-96.0); MONO # 0.4 10^3/uL (0.0-0.8); MONO % 11.5 % (2.0-8.0); NEUTROPHILS # 2.4 10^3/uL (1.5-8.5); NEUTROPHILS % 62.9 % (36.0-66.0); PLATELET COUNT, AUTOMATED 110 10^3/uL (150-450); RED BLOOD COUNT 4.34 10^6/uL (4.30-6.10); WHITE BLOOD COUNT 3.8 10^3/uL (4.0-10.0)
[2021-06-16 11:49] LABS: ALBUMIN 3.5 GM/DL (3.2-5.2); ALT/SGPT 28 U/L (12-78); BILIRUBIN,DIRECT 0.7 MG/DL (0.0-0.2); BLOOD UREA NITROGEN 17 MG/DL (7-18); CREATININE FOR GFR 1.07 MG/DL (0.70-1.30); GLOMERULAR FILTRATION RATE > 60.0 (>49); TOTAL PROTEIN 6.7 GM/DL (6.4-8.2)
== END ==
LOC: M PLALAB 07:32
PROVIDERS: ATTEND Internal Medicine Gastroenterology
DX: K63.5 Polyp of colon (principal)

== ENCOUNTER → 2021-06-16 | Outpatient (CLI) | payer OTHER ==
[2021-06-16 11:44] LABS: BLOOD UREA NITROGEN 17 MG/DL (7-18); CALCIUM LEVEL 8.4 MG/DL (8.8-10.2); CARBON DIOXIDE LEVEL 27 MEQ/L (21-32); CHLORIDE LEVEL 108 MEQ/L (98-107); CREATININE FOR GFR 1.07 MG/DL (0.70-1.30); GLOMERULAR FILTRATION RATE > 60.0 (>49); GLUCOSE, FASTING 159 MG/DL (70-100); POTASSIUM SERUM 4.4 MEQ/L (3.5-5.1); SODIUM LEVEL 140 MEQ/L (136-145)
[2021-06-16 12:02] LABS: MALB URINE SIEMENS < 5.0 MG/L; MAU/CREAT RATIO 3.5 MCG/MG (0.0-30.0)
== END ==
LOC: M PLALAB 07:35
PROVIDERS: ATTEND Student in an Organized Health Care Education/Training Program
DX: E11.9 Type 2 diabetes mellitus without complications (principal)

== ENCOUNTER → 2021-06-30 | Outpatient (CLI) | payer OTHER ==
[~2021-06-30] MED LIST changes: +ISOVUE-300 61% 50ML VIAL As Ordered ONE; +LIDOCAINE 1% MDV 20ML VIAL As Ordered ONE; +methylPREDNISolone SUSP 40MG/ML 1ML VIAL (DEPO MEDROL) As Ordered ONE
== END ==
LOC: M RADPRO 13:59
PROVIDERS: ATTEND Physician Assistant
DX: M16.11 Unilateral primary osteoarthritis, right hip (principal)
CPT/HCPCS: 20610; 77002; J1030; Q9967

== ENCOUNTER → 2021-07-01 | Outpatient (CLI) | payer OTHER ==
[~2021-07-01] MED LIST changes: -ISOVUE-300 61% 50ML VIAL As Ordered ONE; -LIDOCAINE 1% MDV 20ML VIAL As Ordered ONE; -methylPREDNISolone SUSP 40MG/ML 1ML VIAL (DEPO MEDROL) As Ordered ONE
[2021-07-01 10:40] LABS: BASO % 0.2 % (0.0-1.0); EOS % 0.1 % (0.0-3.0); HEMATOCRIT 44.1 % (42.0-52.0); HEMOGLOBIN 14.8 g/dl (13.5-17.5); LYMPH # 1.1 10^3/uL (1.5-5.0); LYMPH % 8.9 % (24.0-44.0); MEAN CORPUSCULAR HEMOGLOBIN 32.3 pg (27.0-33.0); MEAN CORPUSCULAR HGB CONC 33.6 g/dl (32.0-36.5); MEAN CORPUSCULAR VOLUME 96.3 fl (80.0-96.0); MONO # 0.7 10^3/uL (0.0-0.8); MONO % 5.6 % (2.0-8.0); NEUTROPHILS # 10.6 10^3/uL (1.5-8.5); NEUTROPHILS % 84.6 % (36.0-66.0); PLATELET COUNT, AUTOMATED 149 10^3/uL (150-450); RED BLOOD COUNT 4.58 10^6/uL (4.30-6.10); WHITE BLOOD COUNT 12.5 10^3/uL (4.0-10.0)
== END ==
LOC: M LAB 09:46
PROVIDERS: ATTEND Student in an Organized Health Care Education/Training Program
DX: D75.89 Other specified diseases of blood and blood-forming organs (principal)